=== PATIENT | male | born 1965 | race Caucasian/White ===

== ENCOUNTER 2022-03-08 16:28 | Emergency (ER) | payer OTHER ==
[2022-03-08 16:38] VITALS: BMI 41.8
[2022-03-08] MEDS ORDERED: TETRACAINE 0.5% OPHTH SOLN 2 ML BOTTLE OD ONE (17:45)
[2022-03-08] MEDS ORDERED: FLUORESCEIN NA 1 EA STRIP OD ONE (17:46)
[2022-03-08] MEDS ORDERED: TETRACAINE 0.5% OPHTH SOLN 2 ML BOTTLE ONE (18:04)
[2022-03-08] MEDS ORDERED: FLUORESCEIN NA 1 EA STRIP ONE (18:04)
[2022-03-08] MEDS ORDERED: ACETAMINOPHEN 500 MG TABLET (FP) PO ONE (19:24)
[2022-03-08] MEDS ORDERED: POLYMYXIN B SULFATE/TMP 10 ML OPHTHALMIC SOLUTION OD ONE (19:36)
[2022-03-08 20:12] VITALS: BP 178/80; PULSE 84; RESP 14; TEMP 98.7
[2022-03-08] MEDS ORDERED: POLYMYXIN B SULFATE/TMP 10 ML OPHTHALMIC SOLUTION OS SCH (22:00)
== END 2022-03-08 20:31 | disposition home or self-care (01) ==
LOC: JER 16:28
DX: S05.02XA Injury of conjunctiva and corneal abrasion without foreign body, left eye, initial encounter (principal); K42.9 Umbilical hernia without obstruction or gangrene; W45.8XXA Other foreign body or object entering through skin, initial encounter
CPT/HCPCS: 99283-25

== ENCOUNTER 2022-04-08 21:15 | Inpatient (IN) | payer OTHER ==
[2022-04-08 21:26] VITALS: BMI 41.8
[2022-04-08] MEDS ORDERED: ALBUTEROL SO4 2.5/IPRATROPIUM 0.5 INH SOL 3 ML VIAL.NEB. NEB ONE ×4 (21:30→23:27)
[2022-04-08] MEDS ORDERED: methylPREDNISolone NA SUCC 125 MG/2 ML VIAL IVPUSH ONE (21:58)
[2022-04-08] MEDS ORDERED: methylPREDNISolone NA SUCC 125 MG/2 ML VIAL ONE (22:04)
[2022-04-08 22:10] LABS: BASO % 0.7 % (0-2.0); EOS % 0.9 % (0-4.5); HEMATOCRIT 43.8 % (35.4-49); HEMOGLOBIN 14.9 GM/dL (11.7-16.9); LYMPH % 19.8 % (8-40); MCH 34.5 pg (25.7-33.7); MCHC 33.9 g/dl (32.0-35.9); MEAN CELL VOLUME 101.6 fl (80-96); MEAN PLT VOLUME 7.5 fl (7.5-11.1); MONO % 9.7 % (3.8-10.2); NEUT % 68.9 % (42.8-82.8); PLATELET COUNT 236 10^3/uL (134-434); RBC 4.31 M/mm3 (4.00-5.60); RDW 15.6 % (11.9-15.9); WHITE BLOOD COUNT 9.1 K/mm3 (4.0-10.0)
[2022-04-08 22:21] LABS: VENOUS BASE EXCESS 3.1 mmol/L (-2-2); VENOUS O2 SATURATION 32.5 % (70-80); VENOUS PCO2 47.1 mmHg (38-52); VENOUS PH 7.402 (7.310-7.410)
[2022-04-08 22:26] LABS: INR 1.11 (0.83-1.09); PROTHROMBIN TIME (PATIENT) 12.9 SEC (9.7-13.0)
[2022-04-08 22:29] LABS: ACTIVATED PTT 29.5 SECONDS (25.2-36.5)
[2022-04-08 22:36] LABS: BLOOD UREA NITROGEN 13.8 mg/dL (7-18); CALCIUM 8.1 mg/dL (8.5-10.1)
[2022-04-08 22:37] LABS: ALBUMIN 3.3 g/dl (3.4-5.0); MAGNESIUM 1.4 mg/dL (1.8-2.4)
[2022-04-08 22:41] LABS: BILIRUBIN,TOTAL 0.4 mg/dL (0.2-1); TOT PROT 6.8 g/dl (6.4-8.2)
[2022-04-08 22:44] LABS: N-TERMINAL BNP 66.1 pg/ml (5-125)
[2022-04-08] MEDS ORDERED: diazePAM CARPU-JECT 10 MG/2 ML DISP.SYRIN IVPUSH ONE (22:44)
[2022-04-08] MEDS ORDERED: chlordiazePOXIDE HCL 25 MG CAPSULE PO ONE (22:48)
[2022-04-08] MEDS ORDERED: chlordiazePOXIDE HCL 25 MG CAPSULE ONE (22:50)
[2022-04-08] MEDS ORDERED: MAGNESIUM 1GM/D5W - 1 GM/100 ML IVPB IVPB ONE (22:50)
[2022-04-08] MEDS ORDERED: POTASSIUM CHLORIDE TABS 20 MEQ TABLET.ER (FP) PO ONE ×2 (23:21→23:27)
[2022-04-08] MEDS ORDERED: POTASSIUM CHLORIDE TABS 10 MEQ TABLET.ER (FP) ONE (23:33)
[2022-04-08] MEDS ORDERED: LORazepam 2 MG/ML SDV VIAL IVPUSH ONE (23:34)
[2022-04-09] MEDS ORDERED: SODIUM CHLORIDE 0.9% 500 ML INFUS.BAG IV ONE (01:37)
[2022-04-09] MEDS ORDERED: LORazepam 2 MG/ML SDV VIAL IVPUSH ONE ×2 (01:38→02:22)
[2022-04-09] MEDS ORDERED: AZITHROMYCIN IVPB 500 MG in DEXTROSE 5%-WATER - 250 ML IVPB ONE (02:17)
[2022-04-09] MEDS ORDERED: AZITHROMYCIN IVPB 500 MG/250 ML BAG IVPB ONE (02:21)
[2022-04-09] MEDS ORDERED: LORazepam 1 MG TABLET PO PRN (05:39)
[2022-04-09] MEDS ORDERED: NICOTINE 14 MG/24 HOURS TOPICAL PATCH TD PRN (05:43)
[2022-04-09] MEDS ORDERED: methylPREDNISolone NA SUCC 40 MG/1 ML VIAL ONE (06:03)
[2022-04-09] MEDS: LORazepam 1 MG TABLET PO SCH ×4 (06:03→22:13)
[2022-04-09] MEDS: methylPREDNISolone NA SUCC 40 MG/1 ML VIAL IVPUSH SCH ×3 (06:15→18:03)
[2022-04-09] MEDS ORDERED: INSULIN SLIDING SCALE (NOVOLOG) 1 VIAL SQ SCH (07:00)
[2022-04-09 07:01] LABS: CALCIUM 8.4 mg/dL (8.5-10.1)
[2022-04-09 07:02] LABS: ALBUMIN 3.2 g/dl (3.4-5.0); BLOOD UREA NITROGEN 14.8 mg/dL (7-18); MAGNESIUM 1.7 mg/dL (1.8-2.4)
[2022-04-09 07:04] LABS: PHOSPHOROUS 3.4 mg/dL (2.5-4.9)
[2022-04-09 07:06] LABS: BILIRUBIN,TOTAL 0.7 mg/dL (0.2-1); TOT PROT 6.8 g/dl (6.4-8.2)
[2022-04-09] MEDS ORDERED: MAGNESIUM 1GM/D5W 100ML - 100 ML IVPB IVPB ONE (07:07)
[2022-04-09] MEDS ORDERED: ALBUTEROL SO4 2.5/IPRATROPIUM 0.5 INH SOL 3 ML VIAL.NEB. NEB SCH (08:00)
[2022-04-09] MEDS ORDERED: MAGNESIUM 1GM/D5W - 1 GM/100 ML IVPB IVPB ONE (08:06)
[2022-04-09] MEDS ORDERED: ALBUTEROL SO4 2.5/IPRATROPIUM 0.5 INH SOL 3 ML VIAL.NEB. NEB ONE (08:06)
[2022-04-09] MEDS: INSULIN SLIDING SCALE (NOVOLOG) 1 VIAL SQ SCH ×4 (08:15→21:23)
[2022-04-09] MEDS: ALBUTEROL SO4 2.5/IPRATROPIUM 0.5 INH SOL 3 ML VIAL.NEB. NEB SCH ×4 (08:16→20:05)
[2022-04-09 08:28] LABS: URINE APPEARANCE CLEAR; URINE BILIRUBIN NEGATIVE (NEGATIVE); URINE COLOR YELLOW; URINE GLUCOSE (UA) NEGATIVE (NEGATIVE); URINE KETONE NEGATIVE (NEGATIVE); URINE LEUK ESTERASE NEGATIVE (NEGATIVE); URINE NITRITE NEGATIVE (NEGATIVE); URINE PROTEIN NEGATIVE (NEGATIVE); URINE UROBILINOGEN 0.2 mg/dL (0.2-1.0)
[2022-04-09] MEDS ORDERED: ALBUTEROL SO4 HFA INHALER IH PRN (08:44)
[2022-04-09] MEDS: LOSARTAN 50MG/HCTZ 12.5MG 1 TAB PO SCH (10:27)
[2022-04-09] MEDS: TAMSULOSIN HCL 0.4 MG CAP PO SCH (10:27)
[2022-04-09] MEDS: THIAMINE HCL 100 MG TABLET (FP) PO SCH (10:27)
[2022-04-09] MEDS: FOLIC ACID 1 MG TABLET (FP) PO SCH (10:27)
[2022-04-09] MEDS: ENOXAPARIN NA (PORCINE) 40 MG/0.4 ML DISP.SYRIN SQ SCH ×2 (10:28→21:21)
[2022-04-09] MEDS: FUROSEMIDE 40 MG TABLET (FP) PO SCH (10:28)
[2022-04-09] MEDS: BUDESONIDE/FORMETEROL FUMARATE 160/4.5 mcg INHALER IH SCH ×2 (10:37→21:40)
[2022-04-09] MEDS: DOXYCYCLINE INJECTION 100 MG in DEXTROSE 5%-WATER 100 ML IVPB SCH ×2 (13:03→21:21)
[2022-04-09] MEDS ORDERED: LIPASE/PROTEASE/AMYLASE 36,000 UNIT CAPSULE PO SCH (14:00)
[2022-04-09] MEDS ORDERED: ROSUVASTATIN CA 20 MG TABLET PO SCH (22:00)
[2022-04-10] MEDS: methylPREDNISolone NA SUCC 40 MG/1 ML VIAL IVPUSH SCH ×2 (01:45→10:04)
[2022-04-10] MEDS: LORazepam 1 MG TABLET PO SCH ×3 (06:24→17:16)
[2022-04-10] MEDS: INSULIN SLIDING SCALE (NOVOLOG) 1 VIAL SQ SCH ×4 (06:25→22:56)
[2022-04-10] MEDS: ALBUTEROL SO4 2.5/IPRATROPIUM 0.5 INH SOL 3 ML VIAL.NEB. NEB SCH ×5 (07:30→20:21)
[2022-04-10] MEDS: LIPASE/PROTEASE/AMYLASE 36,000 UNIT CAPSULE PO SCH ×3 (08:03→17:59)
[2022-04-10] MEDS: TAMSULOSIN HCL 0.4 MG CAP PO SCH (09:43)
[2022-04-10] MEDS: FUROSEMIDE 40 MG TABLET (FP) PO SCH (09:46)
[2022-04-10] MEDS: FOLIC ACID 1 MG TABLET (FP) PO SCH (09:47)
[2022-04-10] MEDS: THIAMINE HCL 100 MG TABLET (FP) PO SCH (09:47)
[2022-04-10] MEDS: LOSARTAN 50MG/HCTZ 12.5MG 1 TAB PO SCH (09:47)
[2022-04-10] MEDS: ENOXAPARIN NA (PORCINE) 40 MG/0.4 ML DISP.SYRIN SQ SCH ×2 (09:50→22:49)
[2022-04-10] MEDS: DOXYCYCLINE INJECTION 100 MG in DEXTROSE 5%-WATER 100 ML IVPB SCH (09:54)
[2022-04-10] MEDS: BUDESONIDE/FORMETEROL FUMARATE 160/4.5 mcg INHALER IH SCH ×2 (10:05→22:47)
[2022-04-10] MEDS ORDERED: LORazepam 1 MG TABLET PO PRN (18:06)
[2022-04-10] MEDS ORDERED: NICOTINE 14 MG/24 HOURS TOPICAL PATCH TD PRN (18:06)
[2022-04-10] MEDS ORDERED: ALBUTEROL SO4 HFA INHALER IH PRN (18:06)
[2022-04-10 22:03] VITALS: RESP 20
[2022-04-10] MEDS: ROSUVASTATIN CA 20 MG TABLET PO SCH (22:45)
[2022-04-10] MEDS ORDERED: LORazepam 1 MG TABLET PO SCH (23:00)
[2022-04-11] MEDS ORDERED: LORazepam 0.5 MG TABLET PO PRN ×2
[2022-04-11] MEDS ORDERED: LORazepam 0.5 MG TABLET PO SCH (05:00)
[2022-04-11] MEDS: LORazepam 0.5 MG TABLET PO SCH ×4 (06:32→22:28)
[2022-04-11] MEDS: INSULIN SLIDING SCALE (NOVOLOG) 1 VIAL SQ SCH ×4 (06:39→21:50)
[2022-04-11 08:24] LABS: BASO % 0.1 % (0-2.0); EOS % 0.1 % (0-4.5); HEMATOCRIT 44.4 % (35.4-49); HEMOGLOBIN 15.1 GM/dL (11.7-16.9); LYMPH % 15.4 % (8-40); MCH 35.7 pg (25.7-33.7); MEAN CELL VOLUME 104.9 fl (80-96); MEAN PLT VOLUME 8.5 fl (7.5-11.1); MONO % 7.4 % (3.8-10.2); PLATELET COUNT 203 10^3/uL (134-434); RBC 4.24 M/mm3 (4.00-5.60); RDW 15.5 % (11.9-15.9); WHITE BLOOD COUNT 10.2 K/mm3 (4.0-10.0)
[2022-04-11] MEDS: ALBUTEROL SO4 2.5/IPRATROPIUM 0.5 INH SOL 3 ML VIAL.NEB. NEB SCH ×4 (08:34→19:31)
[2022-04-11 08:41] LABS: ALBUMIN 3.2 g/dl (3.4-5.0); CALCIUM 8.5 mg/dL (8.5-10.1); MAGNESIUM 2.3 mg/dL (1.8-2.4)
[2022-04-11 08:44] LABS: CREATININE 0.8 mg/dL (0.55-1.3); PHOSPHOROUS 3.8 mg/dL (2.5-4.9)
[2022-04-11 08:46] LABS: BILIRUBIN,TOTAL 0.6 mg/dL (0.2-1); TOT PROT 6.7 g/dl (6.4-8.2)
[2022-04-11] MEDS ORDERED: methylPREDNISolone NA SUCC 40 MG/1 ML VIAL IVPUSH SCH (10:00)
[2022-04-11] MEDS: THIAMINE HCL 100 MG TABLET (FP) PO SCH (10:07)
[2022-04-11] MEDS: ENOXAPARIN NA (PORCINE) 40 MG/0.4 ML DISP.SYRIN SQ SCH ×2 (10:07→21:40)
[2022-04-11] MEDS: FOLIC ACID 1 MG TABLET (FP) PO SCH (10:07)
[2022-04-11] MEDS: FUROSEMIDE 40 MG TABLET (FP) PO SCH (10:08)
[2022-04-11] MEDS: TAMSULOSIN HCL 0.4 MG CAP PO SCH (10:09)
[2022-04-11] MEDS: LIPASE/PROTEASE/AMYLASE 36,000 UNIT CAPSULE PO SCH ×3 (10:10→17:55)
[2022-04-11] MEDS: LOSARTAN 50MG/HCTZ 12.5MG 1 TAB PO SCH (10:10)
[2022-04-11] MEDS: BUDESONIDE/FORMETEROL FUMARATE 160/4.5 mcg INHALER IH SCH ×2 (12:21→21:41)
[2022-04-11] MEDS: POLYETHYLENE GLYCOL (HEALTHYLAX) 3350 17 GM PACKET PO SCH (12:25)
[2022-04-11] MEDS ORDERED: BISACODYL 10 MG SUPP.RECT PR ONE (16:38)
[2022-04-11] MEDS: ROSUVASTATIN CA 20 MG TABLET PO SCH (21:39)
[2022-04-12] MEDS ORDERED: LORazepam 0.5 MG TABLET PO ONE ×3 (05:00→06:00)
[2022-04-12] MEDS: INSULIN SLIDING SCALE (NOVOLOG) 1 VIAL SQ SCH ×2 (06:00→12:15)
[2022-04-12] MEDS: ALBUTEROL SO4 2.5/IPRATROPIUM 0.5 INH SOL 3 ML VIAL.NEB. NEB SCH ×2 (07:42→11:12)
[2022-04-12 08:25] LABS: BASO % 0.2 % (0-2.0); EOS % 1.5 % (0-4.5); HEMATOCRIT 44.2 % (35.4-49); HEMOGLOBIN 14.8 GM/dL (11.7-16.9); LYMPH % 18.9 % (8-40); MCH 34.7 pg (25.7-33.7); MCHC 33.4 g/dl (32.0-35.9); MEAN CELL VOLUME 104.1 fl (80-96); MEAN PLT VOLUME 8.3 fl (7.5-11.1); MONO % 6.7 % (3.8-10.2); NEUT % 72.7 % (42.8-82.8); PLATELET COUNT 170 10^3/uL (134-434); RBC 4.24 M/mm3 (4.00-5.60); RDW 15.1 % (11.9-15.9); WHITE BLOOD COUNT 8.7 K/mm3 (4.0-10.0)
[2022-04-12 08:49] LABS: ALBUMIN 3.1 g/dl (3.4-5.0); BLOOD UREA NITROGEN 22.5 mg/dL (7-18); CALCIUM 8.1 mg/dL (8.5-10.1)
[2022-04-12 08:50] LABS: MAGNESIUM 2.3 mg/dL (1.8-2.4)
[2022-04-12 08:52] LABS: CREATININE 0.7 mg/dL (0.55-1.3)
[2022-04-12 08:54] LABS: BILIRUBIN,TOTAL 0.5 mg/dL (0.2-1); TOT PROT 6.4 g/dl (6.4-8.2)
[2022-04-12] MEDS: LOSARTAN 50MG/HCTZ 12.5MG 1 TAB PO SCH (09:59)
[2022-04-12] MEDS: ENOXAPARIN NA (PORCINE) 40 MG/0.4 ML DISP.SYRIN SQ SCH (09:59)
[2022-04-12] MEDS: THIAMINE HCL 100 MG TABLET (FP) PO SCH (09:59)
[2022-04-12] MEDS: FOLIC ACID 1 MG TABLET (FP) PO SCH (09:59)
[2022-04-12] MEDS: TAMSULOSIN HCL 0.4 MG CAP PO SCH (09:59)
[2022-04-12] MEDS: FUROSEMIDE 40 MG TABLET (FP) PO SCH (09:59)
[2022-04-12] MEDS: LIPASE/PROTEASE/AMYLASE 36,000 UNIT CAPSULE PO SCH ×2 (09:59→13:28)
[2022-04-12] MEDS ORDERED: PANTOPRAZOLE 40 MG TABLET PO SCH (10:00)
[2022-04-12] MEDS ORDERED: predniSONE 20 MG TABLET (UD) PO SCH (10:00)
[2022-04-12] MEDS: BUDESONIDE/FORMETEROL FUMARATE 160/4.5 mcg INHALER IH SCH (11:04)
[2022-04-12] MEDS: POLYETHYLENE GLYCOL (HEALTHYLAX) 3350 17 GM PACKET PO SCH (13:28)
[2022-04-12 14:31] VITALS: BP 118/88; PULSE 106; TEMP 98.1
== END 2022-04-12 13:41 | disposition home or self-care (01) | DRG 140 ==
LOC: JER 21:15 → JERBED 22:02 → J4W 04-09 09:28 → J8W 04-10 14:11
PROVIDERS: ADMIT Internal Medicine; ATTEND Nurse Practitioner Family
DX: J44.1 Chronic obstructive pulmonary disease with (acute) exacerbation (principal); E83.42 Hypomagnesemia; Z68.41 Body mass index [BMI] 40.0-44.9, adult; E66.01 Morbid (severe) obesity due to excess calories; S92.335A Nondisplaced fracture of third metatarsal bone, left foot, initial encounter for closed fracture; S92.345A Nondisplaced fracture of fourth metatarsal bone, left foot, initial encounter for closed fracture; E87.6 Hypokalemia; F11.10 Opioid abuse, uncomplicated; K76.0 Fatty (change of) liver, not elsewhere classified; G47.33 Obstructive sleep apnea (adult) (pediatric); R73.03 Prediabetes; F17.210 Nicotine dependence, cigarettes, uncomplicated; I10 Essential (primary) hypertension; N40.0 Benign prostatic hyperplasia without lower urinary tract symptoms; E78.5 Hyperlipidemia, unspecified; F32.A Depression, unspecified; F10.230 Alcohol dependence with withdrawal, uncomplicated; R00.0 Tachycardia, unspecified; K42.9 Umbilical hernia without obstruction or gangrene; W05.1XXA Fall from non-moving nonmotorized scooter, initial encounter; Y93.89 Activity, other specified; Y92.89 Other specified places as the place of occurrence of the external cause; Y99.8 Other external cause status; R94.31 Abnormal electrocardiogram [ECG] [EKG]; I25.10 Atherosclerotic heart disease of native coronary artery without angina pectoris
CPT/HCPCS: 0241U-QW; 36415; 71045-TC-FY; 71275-TC; 73610-TC-LT-FY; 73630-TC-LT; 80053; 80061; 81003; 82550; 82803; 82962; 83036; 83735; 83880; 84100; 84443; 84484; 85025; 85610; 85730; 93005; 93010; 93306-TC; 94640; 99285-25; Q9967